=== PATIENT | male | born 1965 | race Caucasian/White ===

== ENCOUNTER → 2016-10-16 | Outpatient (REF) | payer BC ==
[2016-10-16 18:54] LABS: ALBUMIN 3.7 GM/DL (3.2-5.2); ALBUMIN/GLOBULIN RATIO 0.95 (1.00-1.93); ALKALINE PHOSPHATASE 95 U/L (45-117); ALT/SGPT 95 U/L (12-78); AST/SGOT 101 U/L (15-37); BILIRUBIN,DIRECT 0.2 MG/DL (0.0-0.2); BILIRUBIN,TOTAL 0.6 MG/DL (0.2-1.0); TOTAL PROTEIN 7.6 GM/DL (6.4-8.2)
== END ==
LOC: M SFHCPLAZ 14:50
DX: R74.8 Abnormal levels of other serum enzymes (principal)

== ENCOUNTER → 2016-10-28 | Outpatient (REF) | payer BC ==
[2016-10-28 12:33] LABS: FOLATE 8.3 NG/ML; VITAMIN B12 LEVEL 292 PG/ML
[2016-10-28 12:35] LABS: ALBUMIN 3.9 GM/DL (3.2-5.2); ALKALINE PHOSPHATASE 101 U/L (45-117); ALT/SGPT 86 U/L (12-78); AST/SGOT 90 U/L (15-37); BILIRUBIN,DIRECT 0.2 MG/DL (0.0-0.2); BILIRUBIN,TOTAL 0.7 MG/DL (0.2-1.0); FERRITIN 708 NG/ML (26-388); PERCENT SATURATION 39.3 % (19.7-37.4); TOTAL IRON BINDING CAPACITY 257 UG/DL (250-450); TOTAL PROTEIN 7.8 GM/DL (6.4-8.2)
[2016-10-30 00:08] LABS: ALPHA 1 ANTITRYPSIN 169 mg/dL (90-200)
== END ==
LOC: M SFHCPLAZ 09:26
DX: R74.8 Abnormal levels of other serum enzymes (principal); F10.10 Alcohol abuse, uncomplicated

== ENCOUNTER → 2016-10-28 | Outpatient (CLI) | payer BC ==
--- NOTE | 2016-10-28 09:31 | REP ---
Clinical: Abnormal liver function tests . Technique: Rodriguez scale ultrasound using curved array transducer. Findings: The liver and pancreas are normal in contour, size, and echogenicity without focal hepatic or pancreatic lesions identified. The gallbladder is normal without gallstones, wall thickening or pericholecystic fluid. No biliary ductal dilatation is appreciated, and the common bile duct measures 3.7 mm diameter. The right kidney is normal in reniform shape without hydronephrosis and measures 10.8 x 5.7 x 5.1 cm. No ascites. Visualized portions of the abdominal aorta normal. Impression: Normal right upper quadrant and gallbladder abdominal ultrasound. Signed by Bassam Shields MD 10/28/2016 09:22 A
== END ==
LOC: M RAD 08:45
PROVIDERS: ATTEND Student in an Organized Health Care Education/Training Program
DX: R74.8 Abnormal levels of other serum enzymes (principal)

== ENCOUNTER → 2017-02-25 | Outpatient (CLI) | payer BC ==
[2017-02-25 20:10] LABS: ALBUMIN 3.7 GM/DL (3.2-5.2); ALBUMIN/GLOBULIN RATIO 1.03 (1.00-1.93); ALKALINE PHOSPHATASE 96 U/L (45-117); ALT/SGPT 75 U/L (12-78); ANION GAP 7 MEQ/L (8-16); AST/SGOT 85 U/L (15-37); BILIRUBIN,TOTAL 0.6 MG/DL (0.2-1.0); BLOOD UREA NITROGEN 12 MG/DL (7-18); CALCIUM LEVEL 9.2 MG/DL (8.5-10.1); CARBON DIOXIDE LEVEL 27 MEQ/L (21-32); CHLORIDE LEVEL 101 MEQ/L (98-107); CREATININE FOR GFR 1.03 MG/DL (0.70-1.30); GLOMERULAR FILTRATION RATE > 60.0 (>56); GLUCOSE, FASTING 83 MG/DL (70-105); POTASSIUM SERUM 4.5 MEQ/L (3.5-5.1); SODIUM LEVEL 135 MEQ/L (136-145); TOTAL PROTEIN 7.3 GM/DL (6.4-8.2)
== END ==
LOC: M WUC 16:25
PROVIDERS: ATTEND Student in an Organized Health Care Education/Training Program
DX: R74.8 Abnormal levels of other serum enzymes (principal)

== ENCOUNTER → 2017-04-30 | Outpatient (REF) | payer BC ==
[2017-04-30 16:40] LABS: ALBUMIN 3.7 GM/DL (3.2-5.2); ALBUMIN/GLOBULIN RATIO 0.97 (1.00-1.93); ALKALINE PHOSPHATASE 93 U/L (45-117); ALT/SGPT 73 U/L (12-78); ANION GAP 8 MEQ/L (8-16); AST/SGOT 74 U/L (15-37); BILIRUBIN,TOTAL 0.4 MG/DL (0.2-1.0); BLOOD UREA NITROGEN 9 MG/DL (7-18); CALCIUM LEVEL 8.3 MG/DL (8.5-10.1); CARBON DIOXIDE LEVEL 25 MEQ/L (21-32); CHLORIDE LEVEL 100 MEQ/L (98-107); CHOLESTEROL LEVEL 157 MG/DL (<200); CREATININE FOR GFR 0.83 MG/DL (0.70-1.30); GLOMERULAR FILTRATION RATE > 60.0 (>56); GLUCOSE, FASTING 62 MG/DL (70-105); POTASSIUM SERUM 3.8 MEQ/L (3.5-5.1); SODIUM LEVEL 133 MEQ/L (136-145); TOTAL PROTEIN 7.5 GM/DL (6.4-8.2); TRIGLYCERIDES LEVEL 40 MG/DL (<150); URIC ACID 4.2 MG/DL (3.5-7.2)
== END ==
LOC: M SFHCPLAZ 14:56
DX: I10 Essential (primary) hypertension (principal); M10.9 Gout, unspecified

== ENCOUNTER 2018-05-25 17:34 | Emergency (ER) | payer BC ==
[2018-05-25] MEDS: LIDOCAINE 2% W/EPIN INJ 20ML **PRES FREE INJ (18:26)
== END 2018-05-25 19:06 | disposition home or self-care (01) ==
LOC: M ED 17:34
DX: S81.812A Laceration without foreign body, left lower leg, initial encounter (principal); W22.8XXA Striking against or struck by other objects, initial encounter; Y92.019 Unspecified place in single-family (private) house as the place of occurrence of the external cause
CPT/HCPCS: 12002

== ENCOUNTER 2019-07-11 11:13 | Emergency (ER) | payer OTHER, BC ==
[~2019-07-11] VITALS: Ht 185.4 cm; Wt 84.0 kg
--- NOTE | 2019-07-11 12:21 | REP ---
LEFT KNEE SERIES: Six views. HISTORY: Left knee pain and swelling. FINDINGS: There is chondrocalcinosis. Mild medial compartment spurring is seen. There is a large joint effusion distending the suprapatellar bursa. Minimal lateral patellar spurring is noted. IMPRESSION: Chondrocalcinosis. Mild medial and patellofemoral osteoarthritic spurring. Evidence of a large joint effusion. Electronically Signed by Sagar Herrera MD 07/11/2019 01:15 P
--- NOTE | 2019-07-11 12:39 | REP ---
Duplex extremity venous ultrasound: Left lower extremity. History: Tenderness to palpation left calf. Rule out deep vein thrombosis. Findings: The deep veins are anechoic and fully compressible from the groin to the popliteal fossa in the left lower extremity. Color flow imaging is homogeneous. Spectral Doppler interrogation demonstrates intact respiratory variation in flow and normal manual augmentation of flow. There is no evidence of deep vein thrombosis. Impression: Negative left lower extremity duplex venous ultrasound. No evidence of deep vein thrombosis. Electronically Signed by Sagar Herrera MD 07/11/2019 12:32 P
[2019-07-11] MEDS ORDERED: INDO50CA91 PO (13:34)
[2019-07-11 13:45] VITALS: BP 148/94
== END 2019-07-11 13:53 | disposition home or self-care (01) ==
LOC: M ED 11:13
DX: S80.02XA Contusion of left knee, initial encounter (principal); S83.92XA Sprain of unspecified site of left knee, initial encounter; M25.462 Effusion, left knee; M17.12 Unilateral primary osteoarthritis, left knee; M11.262 Other chondrocalcinosis, left knee; W19.XXXA Unspecified fall, initial encounter; Y92.89 Other specified places as the place of occurrence of the external cause; Y93.9 Activity, unspecified; Y99.0 Civilian activity done for income or pay; I10 Essential (primary) hypertension; F17.200 Nicotine dependence, unspecified, uncomplicated; F10.10 Alcohol abuse, uncomplicated; M25.762 Osteophyte, left knee